=== PATIENT | female | born 2005 | race Asian ===

== ENCOUNTER 2023-07-20 14:33 | Emergency (ER) | payer OTHER, SELFPAY ==
[2023-07-20 14:34] VITALS: BP 109/68; PULSE 81; RESP 16; TEMP 36; O2SAT 99; BMI 25.6
[2023-07-20 15:34] VITALS: RESP 16
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
--- NOTE | 2023-07-20 15:41 | NURSING ---
NO OLD EKGS
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
== END 2023-07-20 18:04 | disposition home or self-care (01) ==
PROVIDERS: Emergency Provider Emergency Medicine; Visit Provider Emergency Medicine
DX: T74.21XA Adult sexual abuse, confirmed, initial encounter (principal); F32.A Depression, unspecified; X58.XXXA Exposure to other specified factors, initial encounter
CPT/HCPCS: 99284

== ENCOUNTER 2023-09-25 17:26 | Emergency (ER) | payer OTHER, MEDICAID, SELFPAY ==
[2023-09-25 17:27] VITALS: PULSE 111; RESP 20; TEMP 36.8; O2SAT 99; BMI 28.0
--- NOTE | 2023-09-25 18:25 | RAD_ITS ---
INDICATION: pain digit 1 EXAMINATION/TECHNIQUE: X-RAY - LEFT XR Hand Min 3 Views COMPARISON: None. FINDINGS: 4 views of the left hand were obtained. No acute fracture is identified. No dislocation. RAD/Hand Min 3 Views IMPRESSION: No acute fracture identified. Electronically Signed: Jose Luis Warren MD at 18:59 EST ,
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
== END 2023-09-25 19:05 | disposition home or self-care (01) ==
LOC: ED 18:49
PROVIDERS: Emergency Provider Emergency Medicine; Visit Provider Emergency Medicine
DX: S61.012A Laceration without foreign body of left thumb without damage to nail, initial encounter (principal); S60.012A Contusion of left thumb without damage to nail, initial encounter; W22.8XXA Striking against or struck by other objects, initial encounter
CPT/HCPCS: 73130; 99282

== ENCOUNTER 2023-10-18 19:38 | Emergency (ER) | payer MEDICAID, SELFPAY ==
[2023-10-18 19:39] VITALS: BP 110/72; PULSE 95; RESP 16; TEMP 36.1; O2SAT 99; BMI 25.4
[2023-10-18 19:45] VITALS: BP 109/80; PULSE 105; RESP 13; O2SAT 100
--- NOTE | 2023-10-18 19:52 | EDS_ITS ---
HPI History of Present Illness Chief Complaint: Chest Pain Informant: patient Onset/Context/Timing Onset: Today Activity at onset: sudden and rest Timing: Continuous Quality: Positive for Burning and - (Blocked) Location: Substernal, Right Parasternal, Left Parasternal, Right Chest and Left Chest Worsened By: Nothing Relieved By: Nothing Associated Symptoms: Positive for Nausea, Dyspnea, Lightheadedness, Acid Reflux and Palpitations; Negative for Vomiting, Diaphoresis, Cough or Fever Narrative Narrative: Patient presents with chest pain that began today. Patient states it began suddenly just prior to arrival. Patient states she was crying when the pain began. Patient states she feels blocked in her chest. Patient describes it as burning. Patient states it is diffuse across her chest. Patient admits to some nausea but denies any vomiting. Patient admits to some shortness of breath, lightheadedness, and palpitations. Patient also admits to some reflux symptoms. Patient states she took some Pepto-Bismol with no improvement. CVD Risk Factors: Negative for Hypertension, Diabetes, Hypercholesterolemia, Family History 1' </=55 or Smoking PE Risk Factors: Negative for Recent Travel/Surgery, Recent Immobilization, Prior DVT or PE, Cancer or OCP + Smoking + >/=35 PFSH PFSH Medical History no medical history no medical history Home Medications NK 07/20/23 [History Last Taken Unknown] Allergy/AdvReac Type Severity Reaction Status Date / Time No Known Allergies Allergy Verified 09/25/23 17:27 Surgical History no surgical history no surgical history Social History Smoking Status: Never smoker substance use type: does not use ROS ROS ED Constitutional Constitutional ED: Denies chills or fever(s) Eyes Eyes: Reports blurry vision; Denies change in vision ENT ENT ED: Denies rhinorrhea or sore throat Cardiovascular Cardiovascular: Reports chest pain and palpitations Respiratory/Chest Respiratory/Chest: Reports dyspnea; Denies cough Gastrointestinal Gastrointestinal: Reports abdominal pain and nausea; Denies vomiting Genitourinary Genitourinary ED: Denies dysuria or hematuria Musculoskeletal Musculoskeletal: Reports back pain; Denies neck pain Integumentary Denies abscess or rash Neurologic Neurologic: Reports headache(s); Denies weakness Allergic/Immunologic Allergic/Immunologic ED: Denies mouth swelling or urticaria EXAM Physical Exam Const Vital Signs: 10/18/23 19:39 10/18/23 19:45 10/18/23 19:46 Temperature 97 F L Temperature Source Temporal Pulse Rate 95 105 H Respiratory Rate 16 13 Respiratory Effort Normal Non-Labored Blood Pressure 110/72 109/80 Blood Pressure Mean 84 89 Pulse Ox 99 100 Oxygen Delivery Method Room Air 10/18/23 19:58 Temperature Temperature Source Pulse Rate Respiratory Rate Respiratory Effort Blood Pressure Blood Pressure Mean Pulse Ox Oxygen Delivery Method Room Air Positive well nourished and well developed General Appearance ED: well developed and NAD HEENT Reports moist mucous membranes Neck supple and no JVD Chest Wall palpation of chest normal Resp normal respiratory effort and clear to auscultation bilaterally Cardio regular rate and regular rhythm GI soft to palpation and non-distended GI Narrative: There is mild tenderness over the left upper and left lower abdomen. There is no rebound or guarding noted. Bowel sounds are normal. Neuro oriented x3, CN's II-XII intact bilaterally and no sensory deficits noted Sensorium / Orientation: awake and alert Motor Exam: strength 5/5 throughout Psych mental status grossly normal Heart Score History: Slightly/Non-Suspicious ECG: Normal Age: </= 45 years Risk Factors: No Risk Factors Troponin: </= Normal Limit Score: 0 MDM MDM MDM Narrative Medical decision making narrative: Differential diagnosis includes cardiac dysrhythmia, cardiac ischemia, electrolyte abnormality, pneumonia, pneumothorax, pulmonary embolism, and anxiety. EKG will be obtained to assess for cardiac dysrhythmia and cardiac ischemia. Chest x-ray will be obtained to assess for pneumonia and pneumothorax. CBC will be obtained to assess for leukocytosis and anemia. Basic metabolic profile will be obtained to assess for electrolyte abnormality and renal function. High-sensitivity troponin will be obtained to assess for cardiac ischemia. D-dimer will be obtained to assess for pulmonary embolism. Lab Data Lab results narrative: CBC was reviewed and was within normal limits. Basic metabolic profile was reviewed and was within normal limits. High-sensitivity troponin was reviewed and was normal at less than 3. D-dimer was reviewed and was normal at less than 0.27. Labs: Laboratory Results - last 24 hr 10/18/23 20:16 WBC 8.0 RBC 4.97 Hgb 11.1 L Hct 38.4 MCV 77.3 L MCH 22.3 L MCHC 28.9 L RDW Std Deviation 47.0 H RDW Coeff of Miryam 16.8 H Plt Count 371 MPV 10.6 Immature Gran % (Auto) 0.400 Neut % (Auto) 65.6 Lymph % (Auto) 26.1 [place] % (Auto) 5.3 Eos % (Auto) 2.0 Baso % (Auto) 0.6 Absolute Neuts (auto) 5.2 Absolute Lymphs (auto) 2.08 Nucleated RBC % 0 D-Dimer Quant (PE/DVT) < 0.27 L Sodium 139 Potassium 3.9 Chloride 107 Carbon Dioxide 29.0 Anion Gap 3 L BUN 9 Creatinine 0.73 Estim Creat Clear Calc 97.23 Est GFR (MDRD) Af Amer 131 Est GFR (MDRD) Non-Af 108 BUN/Creatinine Ratio 12.4 Glucose 117 H Calcium 9.2 Troponin I High Sens < 3 L Radiography Chest X-Ray - ED: 1 View, Read by ED Physician, Read by Radiologist and No Acute Disease Diagnostic Testing: Clinical Impression(s) from Imaging Studies Chest X-Ray 10/18/23 20:05 IMPRESSION: Normal x-ray examination of the chest. Electronically Signed: Aram Kim MD at 20:21 EST , Portable 1 view chest x-ray was obtained. On my independent interpretation, lung jorge are clear. There is normal cardiac silhouette. Bony thorax is normal. There is no acute process noted. Radiologist also interpreted the x- ray and agrees. EKG Initial EKG: Attestation: I personally reviewed and interpreted this EKG as follows: Interpretation: Sinus Rhythm (88) and No Acute Injury Pattern Comments: EKG was obtained. On my independent interpretation, it showed a normal sinus rhythm with a rate of 88. VA interval, QRS interval, and QTc intervals were all normal. [place] was normal. There are no acute ST or T wave changes. Prior EKG tracings: not available for review Prior: No Prior Treatment and Re-Evaluation :: Patient was given aspirin here. Patient was advised of her findings. Patient has a HEART score of 0. Patient was advised that this is low risk for acute cardiac event. Patient was instructed to use Tylenol or ibuprofen as needed for pain. Patient was instructed to follow-up with her primary care physician in 5 to 7 days. Patient was instructed return if worse in any way. Patient understood and was agreeable with the plan. All questions were answered. Discharge Plan Triage Chief Complaint: Chest Pain ED Provider: Stewart Fox Dx/Rx/DC Orders Clinical Impression: Chest pain Instructions: ED Chest Pain, Uncertain Cause Prescriptions: No Action NK Primary Care Provider: Care Physician,No Primary Referrals: Gonzales Martinez MD [Med Staff - Aircraft Steel Fabricator] - 5-7 Days Care Physician,No Primary [Primary Care Provider] - Disposition Disposition: Home, Self Care
--- NOTE | 2023-10-18 19:56 | EKG12_ITS ---
Test Reason : Blood Pressure : / mmHG Vent. Rate : 088 BPM Atrial Rate : 088 BPM P-R Int : 132 ms QRS Dur : 078 ms QT Int : 356 ms P-R-T Axes : 062 060 057 degrees QTc Int : 430 ms Normal sinus rhythm Normal ECG Confirmed by JENNIFER PERALES, CHRISTAL ([id number]), film or videotape editor RENITA STEINBERG ([id number]) on 10/26/2023 6:49:11 AM Referred By: Confirmed By:BAILEE RODRIGUEZ MD
--- NOTE | 2023-10-18 20:05 | RAD_ITS ---
STUDY: X-RAY CHEST REASON FOR EXAM: Female, 18 years old. chest pain TECHNIQUE: Single AP portable view of the chest. COMPARISON: None. FINDINGS: The lungs are clear and expanded. There is no demonstrated pleural abnormality. Normal size heart. Normal mediastinum and adam. Normal visualized pulmonary arteries. Normal visualized aortic arch and descending thoracic aorta. Normal visualized thoracic spine. Normal visualized ribs, clavicles, and shoulders. There is no demonstrated abnormality of the visualized soft tissue structures of the upper abdomen. RAD/Chest 1 View (Portable) IMPRESSION: Normal x-ray examination of the chest. Electronically Signed: Aram Kim MD at 20:21 [facility] ,
[2023-10-18] MEDS: Aspirin 81 MG TAB.CHEW 324 MG PO (20:15)
[2023-10-18 20:25] LABS: Absolute Lymphocyte Count 2.08 X10^3/uL (0.83-4.51); Absolute Neutrophil Count 5.2 X10^3/uL (2.0-7.7); Basophil# 0.05 X10^3/uL; Basophil% 0.6 % (0-1); Eosinophil# 0.16 X10^3/uL; Hematocrit 38.4 % (37-47); Hemoglobin 11.1 g/dL (12.0-15.0); Lymphocyte # 2.08 X10^3/ul (0.83-4.51); Lymphocyte % 26.1 % (19-41); Mean Corp Hgb Conc 28.9 g/dL (32-36); Mean Corpuscular Hgb 22.3 pg (27.0-32.0); Mean Corpuscular Volume 77.3 fL (81-99); Mean Platelet Vol. 10.6 fl (6.2-12.0); Monocyte# 0.42 X10^3/uL; Monocyte% 5.3 % (0-10); NRBC Flagged by Analyzer 0 % (0-5); Neutrophil # 5.23 X10^3/uL (2.7-7.7); Neutrophil % 65.6 % (47-70); Platelet Count 371 K/mm3 (150-450); RBC Distribution Width CV 16.8 % (11.6-14.6); Red Blood Count 4.97 M/mm3 (4.2-5.4)
[2023-10-18 20:39] LABS: D-Dimer Quantitative (DVT/PE) < 0.27 FEU/ug/m (0.27-0.49)
[2023-10-18 20:41] LABS: Anion Gap 3 (5-15); BUN 9 mg/dL (7-18); BUN/Creat Ratio 12.4 RATIO (10-20); Calcium,Total 9.2 mg/dL (8.5-10.1); Chloride 107 mmol/L (98-107); Creatinine, Serum 0.73 mg/dL (0.55-1.02); EST Glomerular Filtration Rate 108 mL/min (>60); Est Glom Filt Rate - Afr Amer 131 mL/min (>60); Estimated Creatinine Clearance 97.23 ml/min; Glucose 117 mg/dL (74-106); Potassium 3.9 mmol/L (3.5-5.1); Sodium Level 139 mmol/L (136-145); Troponin-I HS < 3 pg/mL (3.0-54.0)
== END 2023-10-18 21:02 | disposition home or self-care (01) ==
PROVIDERS: Emergency Provider Emergency Medicine; Visit Provider Emergency Medicine
DX: R07.9 Chest pain, unspecified (principal); R06.02 Shortness of breath; R11.0 Nausea; R00.2 Palpitations; R51.9 Headache, unspecified
CPT/HCPCS: 71045; 80048; 84484; 85025; 85379; 93005; 99284; A4216

== ENCOUNTER 2024-02-19 19:06 | Emergency (ER) | payer OTHER, MEDICAID, SELFPAY ==
[2024-02-19 19:07] VITALS: BP 103/73; PULSE 87; RESP 18; TEMP 36.2; O2SAT 99
[2024-02-19 19:08] VITALS: BP 103/73; PULSE 87; RESP 18; TEMP 36.2; O2SAT 99; BMI 29.9
--- NOTE | 2024-02-19 19:23 | CT_ITS ---
STUDY: CT ABDOMEN AND PELVIS WITHOUT CONTRAST REASON FOR EXAM: Female, 18 years old. RLQ pain RADIATION DOSAGE (If Supplied By Facility): CTDIvol = ( 12.56 ) mGy, DLP = ( 611.70 ) mGycm TECHNIQUE: Transaxial images were obtained from the dome of the diaphragm to the symphysis pubis without oral contrast, and without intravenous contrast. Sagittal and coronal images were reconstructed. Individualized dose optimization techniques were used for this CT. COMPARISON: None. FINDINGS: The visualized lung bases are unremarkable. The visualized portions of the heart are within normal limits. Normal liver. The gallbladder is contracted. Normal spleen. Normal pancreas. Normal bilateral adrenal glands. Normal right kidney. Normal left kidney. Normal visualized stomach. Normal small intestine. Normal colon. The appendix is visualized and appears normal. Normal abdominal aorta. Normal inferior vena cava. Normal retroperitoneum. Normal urinary bladder. Normal abdominal wall. Mild levoscoliosis lumbar spine. CT/Abdomen/Pelvis without Cont IMPRESSION: Normal unenhanced CT of the abdomen and pelvis. Electronically Signed: Aram Kim MD at 20:59 EDT ,
--- NOTE | 2024-02-19 19:24 | EX.ED.DYSGE1 ---
HPI History of Present Illness Chief Complaint: Abd Pain Informant: patient Onset/Context/Timing Onset: Today Narrative Narrative: Patient presents with rather abrupt onset of lower abdominal pain about an hour ago. She points to the suprapubic area describes the pain as sharp. She became nauseated and vomited twice. She states she last had a bowel movement and urinated this morning. She denies fever or chills. Last menstrual cycle was 2 weeks ago. She denies possibility of . PFSH PFSH Medical History no medical history no medical history Home Medications NK 07/20/23 [History Last Taken Unknown] Allergy/AdvReac Type Severity Reaction Status Date / Time No Known Allergies Allergy Verified 02/19/24 19:07 Surgical History no surgical history no surgical history Social History Smoking Status: Never smoker substance use type: does not use ROS ROS ED Constitutional Constitutional ED: Denies chills or fever(s) Eyes Eyes: Denies discharge from eye(s) ENT ENT ED: Denies discharge from eye(s), rhinorrhea or sore throat Cardiovascular Cardiovascular: Denies chest pain or palpitations Respiratory/Chest Respiratory/Chest: Denies cough or dyspnea Gastrointestinal Gastrointestinal: Reports abdominal pain; Denies nausea or vomiting Genitourinary Genitourinary ED: Denies dysuria Musculoskeletal Musculoskeletal: Denies back pain or extremity pain Integumentary Denies Abrasions or rash Neurologic Neurologic: Denies headache(s) or weakness Psychiatric Psychiatric: Denies anxiety or depression Allergic/Immunologic Allergic/Immunologic ED: Denies lip swelling or urticaria EXAM Physical Exam Const Vital Signs: 02/19/24 19:08 02/19/24 19:07 Temperature 97.1 F L 97.1 F L Temperature Source Temporal Temporal Pulse Rate 87 87 Respiratory Rate 18 18 Blood Pressure 103/73 103/73 Blood Pressure Mean 83 83 Pulse Ox 99 99 Oxygen Delivery Method Room Air Room Air Positive well nourished and well developed General Appearance ED: well developed HEENT Reports moist mucous membranes Eyes EOMs intact bilaterally Chest Wall inspection of chest normal and palpation of chest normal Resp normal respiratory effort and clear to auscultation bilaterally Cardio regular rate and regular rhythm GI GI Narrative: Abdomen soft with tenderness in the right lower quadrant. Active bowel sounds noted throughout. Extremity normal to inspection Neuro oriented x3 and no sensory deficits noted Motor Exam: strength 5/5 throughout Psych mental status grossly normal Skin no rashes or lesions noted MDM MDM MDM Narrative Medical decision making narrative: IV line established. Patient given Toradol and Zofran along with IV fluids. Labwork obtained to evaluate for leukocytosis, anemia, and electrolyte derangement. Urinalysis obtained to evaluate for infection/hematuria. CT flank obtained to evaluate for possible kidney stone, ovarian cyst, appendicitis. History & Record Review Discussion w/independent historian: Patient Lab Data Attestation: I reviewed the patient's lab results. Labs: Laboratory Results - last 24 hr 02/19/24 02/19/24 02/19/24 19:30 19:40 19:50 WBC 8.4 RBC 5.00 Hgb 12.0 Hct 39.1 MCV 78.2 L MCH 24.0 L MCHC 30.7 L RDW Std Deviation 45.0 H RDW Coeff of Miryam 16.0 H Plt Count 299 MPV 11.0 Immature Gran % (Auto) 0.200 Neut % (Auto) 62.6 Lymph % (Auto) 27.9 [place] % (Auto) 7.3 Eos % (Auto) 1.3 Baso % (Auto) 0.7 Absolute Neuts (auto) 5.3 Absolute Lymphs (auto) 2.34 Nucleated RBC % 0 Sodium 136 Potassium 4.0 Chloride 109 H Carbon Dioxide 24.0 Anion Gap 3 L BUN 16 Creatinine 0.60 Estim Creat Clear Calc 135.72 Est GFR (MDRD) Af Amer 162 Est GFR (MDRD) Non-Af 134 BUN/Creatinine Ratio 26.4 H Glucose 88 Calcium 9.3 Serum , Qual NEGATIVE Urine Color Yellow Urine Clarity Sl. Cloudy Urine pH 6.0 Ur Specific [place] 1.020 Urine Protein 15 H Urine Glucose (UA) Normal Urine Ketones 5 H Urine Occult Blood 10 H Urine Nitrite Negative Urine Bilirubin Negative Urine Urobilinogen Normal Ur Leukocyte Esterase 25 H Urine RBC 0-5 SEEN Urine WBC 0-5 SEEN Ur Squamous Epith Cells 0-5 SEEN Urine Bacteria 2+ Urine Mucus 0 SEEN Radiography Diagnostic Testing: Clinical Impression(s) from Imaging Studies Abdomen/Pelvis CT 02/19/24 19:23 IMPRESSION: Normal unenhanced CT of the abdomen and pelvis. Electronically Signed: Aram Kim MD at 20:59 EDT , Treatment and Re-Evaluation :: CBC was normal white count 8.4 with a hemoglobin 12.0. Normal differential. Chemistry studies unremarkable. test is negative. Urinalysis reveals 2+ bacteria with 0-5 white cells, 0-5 epithelial cells, and no nitrites. Patient has no urinary symptoms. CT scan of the flank reveals no acute abnormalities. On repeat evaluation patient states that she feels like she has a lot of gas and is asking for something to help with that. She will be given a dose of simethicone and discharged home. Return instructions were provided. Discharge Plan Triage Chief Complaint: Abd Pain ED Provider: Stacy Chavarria Dx/Rx/DC Orders Clinical Impression: Abdominal pain Instructions: ED Abdominal Pain Unkn Cause Fem Prescriptions: No Action NK Primary Care Provider: Care Physician,No Primary Referrals: [facility] [Group of Physicians] - 1 Week Care Physician,No Primary [Primary Care Provider] - Disposition Disposition: Home, Self Care
[2024-02-19 19:44] LABS: Mucous, Urine 0 SEEN /hpf (<or=2+)
[2024-02-19 19:47] LABS: Color, Urine Yellow (Yellow); Glucose, Dipstick Normal (Normal); Ketone-Dipstick 5 mg/dl (Negative); Leukocyte Esterase-Dipstick 25 /ul (Negative); Nitrite-Dipstick Negative (Negative); Occult Blood-Urine 10 /ul (Negative); Protein-Dipstick 15 mg/dl (Negative); Urine Bilirubin Dipstick Negative (Negative); Urine Clarity Sl. Cloudy (Clear); Urine Urobilinogen Normal (Normal)
[2024-02-19] MEDS: Ondansetron 4 MG/2 ML Vial IV (19:49)
[2024-02-19] MEDS: 0.9% Normal Saline (1000mL) 1,000 ML 150 ML IV (19:49)
[2024-02-19] MEDS: Ketorolac 15 MG/ML Vial IV (19:49)
[2024-02-19 19:59] LABS: Anion Gap 3 (5-15); BUN 16 mg/dL (7-18); BUN/Creat Ratio 26.4 RATIO (10-20); Calcium,Total 9.3 mg/dL (8.5-10.1); Chloride 109 mmol/L (98-107); EST Glomerular Filtration Rate 134 mL/min (>60); Est Glom Filt Rate - Afr Amer 162 mL/min (>60); Estimated Creatinine Clearance 135.72 ml/min; Glucose 88 mg/dL (74-106); Sodium Level 136 mmol/L (136-145)
[2024-02-19 20:00] LABS: Bacteria 2+ /hpf (None Seen); Red Blood Cells-Urine 0-5 SEEN /hpf (0-5); Squamous Epithelial Cells - UA 0-5 SEEN /hpf (5-10); White Blood Cells 0-5 SEEN /hpf (0-5)
[2024-02-19 20:00] LABS: Absolute Lymphocyte Count 2.34 X10^3/uL (0.83-4.51); Absolute Neutrophil Count 5.3 X10^3/uL (2.0-7.7); Basophil# 0.06 X10^3/uL; Basophil% 0.7 % (0-1); Eosinophil# 0.11 X10^3/uL; Eosinophils% 1.3 % (0-5); Hematocrit 39.1 % (37-47); Lymphocyte # 2.34 X10^3/ul (0.83-4.51); Lymphocyte % 27.9 % (19-41); Mean Corp Hgb Conc 30.7 g/dL (32-36); Mean Corpuscular Volume 78.2 fL (81-99); Monocyte# 0.61 X10^3/uL; Monocyte% 7.3 % (0-10); NRBC Flagged by Analyzer 0 % (0-5); Neutrophil # 5.25 X10^3/uL (2.7-7.7); Neutrophil % 62.6 % (47-70); Platelet Count 299 K/mm3 (150-450); White Blood Count 8.4 K/mm3 (4.4-11.0)
[2024-02-19 20:08] LABS: Internal QC Validated? YES +Cl - CLEAR BKGD; Pregnancy, Serum, hCG Quali. NEGATIVE Negative
[2024-02-19 21:07] VITALS: TEMP 36.7
[2024-02-19] MEDS: SimETHICONE 80 MG Chewable Tablet PO (21:38)
[2024-02-19 21:42] VITALS: BP 110/65; PULSE 74; RESP 18; TEMP 36.7; O2SAT 97
== END 2024-02-19 21:43 | disposition home or self-care (01) ==
PROVIDERS: Emergency Provider Emergency Medicine; Visit Provider Emergency Medicine
DX: R10.9 Unspecified abdominal pain (principal); R11.2 Nausea with vomiting, unspecified; R14.3 Flatulence
CPT/HCPCS: 74176; 80048; 81001; 84703; 85025; 96361; 96374; 96375; 99282; J7030; A4216; J2405